=== PATIENT | male | born 1985 | race Caucasian/White ===

== ENCOUNTER → 2016-09-16 | Outpatient (CLI) | payer BC ==
[~2016-09-16] MED LIST: AMOX875T PO; LORA24TA7 PO
--- NOTE | 2016-09-16 13:32 | DIAGNOSTIC IMAGING REPORT ---
TWO VIEW CHEST CLINICAL HISTORY: Cough. Upper respiratory tract infection. FINDINGS: PA and lateral chest radiographs are compared to study dated 08/15/2014. The examination is degraded by large body habitus. The cardiomediastinal silhouette is unremarkable. The lungs and pleural spaces are clear. There is no pneumothorax. The bony thorax appears intact. IMPRESSION: No active disease in the chest. Electronically signed by: Hernan Powell M.D. 09/16/2016 1:30 PM Dictated Date/Time: 09/16/2016 1:29 PM
== END | disposition home or self-care (01) ==
LOC: C.RADPV 13:16
PROVIDERS: ATTEND Family Medicine
DX: J06.9 Acute upper respiratory infection, unspecified (principal); R05 Cough

== ENCOUNTER → 2017-05-21 | Outpatient (CLI) | payer BC ==
[2017-05-21 12:29] LABS: BASO % 0.6 %; BASO ABS # 0.04 K/uL (0-0.2); EOS % 0.8 %; EOS ABS # 0.06 K/uL (0-0.5); HEMATOCRIT 46.2 % (42-52); HEMOGLOBIN 16.1 g/dL (14.0-18.0); IG# 0.01 K/uL (0.00-0.02); LYMPH % 21.7 %; LYMPH ABS # 1.57 K/uL (1.2-3.4); MEAN CELL VOLUME 85.2 fL (80-100); MEAN CORPUSCULAR HEMOGLOBIN 29.7 pg (25-34); MEAN CORPUSCULAR HGB CONC 34.8 g/dl (32-36); MEAN PLATELET VOLUME 10.1 fL (7.4-10.4); MONO % 10.1 %; MONO ABS # 0.73 K/uL (0.11-0.59); NEUT % 66.7 %; NEUT ABS # 4.83 K/uL (1.4-6.5); PLATELET COUNT 356 K/uL (130-400); RED CELL DISTRIBUTION WIDTH CV 14.1 % (11.5-14.5); RED CELL DISTRIBUTION WIDTH SD 43.4 fL (36.4-46.3); WHITE BLOOD COUNT 7.24 K/uL (4.8-10.8)
[2017-05-21 12:48] LABS: ALBUMIN 4.1 gm/dl (3.4-5.0); ALT/SGPT 45 U/L (12-78); BLOOD UREA NITROGEN 11 mg/dl (7-18); CALCIUM 9.5 mg/dl (8.5-10.1); CARBON DIOXIDE 27 mmol/L (21-32); CHOLESTEROL 156 mg/dl (0-200); CREATININE 0.95 mg/dl (0.60-1.40); GLUCOSE 105 mg/dl (70-99); POTASSIUM 4.2 mmol/L (3.5-5.1); SODIUM 137 mmol/L (136-145)
[2017-05-21 12:58] LABS: ALKALINE PHOSPHATASE 92 U/L (45-117); AST/SGOT 19 U/L (15-37); LDL CHOLESTEROL CALCULATED 90 mg/dl
[2017-05-21 13:16] LABS: HEMOGLOBIN A1C 5.8 % (4.5-5.6)
== END | disposition home or self-care (01) ==
LOC: C.LABPVFM 10:09
PROVIDERS: ATTEND Family Medicine
DX: Z13.220 Encounter for screening for lipoid disorders (principal)

== ENCOUNTER 2024-07-17 09:43 | Observation (INO) ==
--- NOTE | 2024-07-17 10:01 | Emergency Department Note ---
History of Present Illness General Chief complaint: Flu Like Symptoms Stated complaint: RASH, FEVER, NAUSEA, HEADACHE, NERVE PAIN Time Seen by Provider: 07/17/24 09:56 History of Present Illness Maximum Pain Intensity: 5 This is a 39-year-old male that presents to the emergency department via private vehicle with complaints of "low back rash, nausea, pain". The patient notes that around 3 PM and this past Wednesday he developed a rash and pain to his low back. He notes history of similar with unclear etiology. He has been hospitalized for similar. He notes that this past Wednesday he presented to an urgent care in the [place] area and was referred to [facility] emergency department. He notes that he had a full workup there and was informed upon elevated CRP, ESR and procalcitonin. He will start on oral antibiotics and antivirals and was discharged home. He notes progressive worsening of the size of the rash/redness to the low back. No known trauma or injury. He notes history of diabetes. Home Medications Medication Instructions Recorded Confirmed Type cetirizine 10 mg tablet (Zyrtec) 10 mg PO DAILY 07/17/24 07/17/24 History doxycycline hyclate 100 mg capsule 100 mg PO BID 07/17/24 07/17/24 History duloxetine 20 mg capsule,delayed 20 mg PO DAILY 07/17/24 07/17/24 History release famotidine 40 mg tablet 40 mg PO BID PRN Heartburn 07/17/24 07/17/24 History losartan 25 mg tablet 25 mg PO DAILY 07/17/24 07/17/24 History metformin 500 mg tablet 500 mg PO QPM 07/17/24 07/17/24 History oxycodone-acetaminophen 5 mg-325 1 tab PO Q6H PRN Pain 07/17/24 07/17/24 History mg tablet semaglutide 1 mg/dose (4 mg/3 mL) 1 mg subcut WK 07/17/24 07/17/24 History subcutaneous pen injector (Ozempic) Allergies Allergy/AdvReac Type Severity Reaction Status Date / Time erythromycin base Allergy Unknown ANAPHYLAXIS Verified 07/17/24 12:52 Sulfa (Sulfonamide Allergy Unknown HIVES Verified 07/17/24 12:52 Antibiotics) levofloxacin AdvReac Unknown diarrhea Verified 07/17/24 12:52 Past Med/Surg History Problem List (Updated 07/17/24 @ 15:23 by Anderson Gill PA-C) Cellulitis (Acute) Herpes zoster Cough (Acute) Medical History Eczema Depression HTN (hypertension) T2DM (type 2 diabetes mellitus) Surgical History History of dental surgery Anal fissure Family History Mother Myocardial infarction 56 Grandfather (Paternal) Prostate cancer Other Diabetes Social History Smoking Status: Never smoker Hx Alcohol Use: Yes Alcohol type: beer Alcohol Intake Frequency: Monthly or Less Preferred Language: Luxembourgish marital status: Current Living Situation: Spouse Feels Safe at Home: Yes Review of Systems A total of 10 systems reviewed and were otherwise negative Physical Exam Vital Signs Vital Signs - 24 hr 07/17/24 09:50 07/17/24 09:58 07/17/24 10:58 Temperature 36.3 C L 37.2 C Temperature Source Oral Oral Pulse Rate 87 87 Pulse Rate [Apical] Pulse Rhythm Regular Pulse Strength Normal Respiratory Rate 20 20 Respiratory Effort / Characteristics Non-Labored Spontaneous Respiratory Depth Normal Respiratory Pattern Regular Blood Pressure 133/93 Blood Pressure [Left Arm] Blood Pressure Mean 106 Blood Pressure Mean [Left Arm] Blood Pressure Position Sitting Pulse Oximetry 99 97 Oxygen Delivery Method Room Air Room Air Sepsis Recent Fever Within 48 Hours No Sepsis New/Unexplained Change in Mental Status No Sepsis Action Taken by Nursing No Action Required 07/17/24 10:59 07/17/24 11:30 07/17/24 13:13 Temperature Temperature Source Pulse Rate 94 H Pulse Rate [Apical] 99 H 90 Pulse Rhythm Pulse Strength Respiratory Rate 18 15 Respiratory Effort / Characteristics Respiratory Depth Respiratory Pattern Blood Pressure Blood Pressure [Left Arm] 151/100 H 128/87 Blood Pressure Mean Blood Pressure Mean [Left Arm] 117 100 Blood Pressure Position Pulse Oximetry 97 97 Oxygen Delivery Method Room Air Room Air Sepsis Recent Fever Within 48 Hours Sepsis New/Unexplained Change in Mental Status Sepsis Action Taken by Nursing 07/17/24 14:53 Temperature Temperature Source Pulse Rate 101 H Pulse Rate [Apical] Pulse Rhythm Pulse Strength Respiratory Rate Respiratory Effort / Characteristics Respiratory Depth Respiratory Pattern Blood Pressure Blood Pressure [Left Arm] Blood Pressure Mean Blood Pressure Mean [Left Arm] Blood Pressure Position Pulse Oximetry Oxygen Delivery Method Sepsis Recent Fever Within 48 Hours Sepsis New/Unexplained Change in Mental Status Sepsis Action Taken by Nursing VITAL SIGNS - Vital signs and nursing notes were reviewed. Stable and afebrile. GENERAL -39-year-old male appearing his stated age who is in no acute distress. Communicates well with provider and answers questions appropriately. SKIN -dark erythematous rash to the low back area overlying the presacral soft tissues extending to the left superior gluteal area. Tiny vesicular like appearance to the inferior most aspect overlying the left superior gluteal area. Remainder is a dark erythematous hue, maculopapular in nature and slightly raised. Area is with a thickened appearance and when palpated does have an indurated feel. HEAD - NC/AT. EYES - PERRL with EOMI bilaterally. Sclera anicteric. Palpebral conjunctiva pink and moist with no injection noted. EARS - No deformities of external structures noted on gross examination bilaterally. No pain elicited with palpation of the tragus bilaterally. External auditory canals without discharge or otorrhea. Tympanic membranes pearly davis without retraction or bulging. No fluid or purulent material visualized behind the TM. Handle of malleus, umbo, cone of light, pars tensa/flaccid all easily visualized. NOSE - Midline and without cyanosis. No epistaxis or purulent drainage noted. Septum midline without deviation or septal hematoma noted. MOUTH/OROPHARYNX - Without perioral cyanosis. NECK - Neck with FROM. No nuchal rigidity. LUNGS - Chest wall symmetric without accessory muscle use, intercostals retractions, or central cyanosis. Normal vesicular breath sounds CTA B/L. No wheezes, rales, or rhonchi appreciated. CARDIAC - RRR. No murmur, rubs, or gallops appreciated. ABDOMEN - Abdominal contour normal without pulsations or visible masses. BS normoactive all four quadrants. No tenderness, palpable masses, hepatosplenomegaly, or ascites noted. EXTREMITIES - No clubbing or peripheral cyanosis. +5/5 strength noted in UE/LE bilaterally. NEUROLOGIC - Cranial nerves II through XII grossly intact. PSYCH -alert, oriented and pleasant on examination Course Administered Medications Discontinued Medications Piperacillin Sod/Tazobactam Sod (Zosyn) 4.5 gm in 100 mls @ 200 mls/hr IV NOW ONE; Protocol Stop: 07/17/24 12:45 Last Infusion: 07/17/24 13:06 Dose: Infused Documented By: Admin: 07/17/24 12:33 Dose: 200 mls/hr Documented By: GUNNAR Ioversol (Optiray 320 100ml) 94 ml IV ONCE ONE Stop: 07/17/24 12:31 Last Admin: 07/17/24 12:30 Dose: 94 ml Documented By: CHAPITO Lorazepam (Lorazepam 1 Mg Tab) 0.5 mg SL NOW STA Stop: 07/17/24 13:41 Last Admin: 07/17/24 14:20 Dose: 0.5 mg Documented By: GUNNAR Medical Decision Making Laboratory Data 07/17/24 10:49 07/17/24 10:49 Lab Results 07/17/24 07/17/24 Range/Units 10:49 11:30 WBC 8.13 (4.8-10.8) K/ul RBC 4.93 (4.70-6.10) M/uL Hgb 14.1 (14.0-18.0) g/dl Hct 40.8 L (42.0-52.0) % MCV 82.8 (80.0-100.0) fL MCH 28.6 (25.0-34.0) pg MCHC 34.6 (32.0-36.0) g/dL RDW Std Deviation 40.4 (36.4-46.3) fL RDW Coeff of [place] 13.4 (11.5-14.5) % Plt Count 295 (130-400) K/uL MPV 10.3 (9.4-12.4) fL Immature Gran % (Auto) 0.4 % Neut % (Auto) 72.8 % Lymph % (Auto) 14.3 % [place] % (Auto) 11.4 % Eos % (Auto) 0.5 % Baso % (Auto) 0.6 % Neut # (Auto) 5.92 (1.40-6.50) K/uL Lymph # (Auto) 1.16 L (1.20-3.40) K/uL [place] # (Auto) 0.93 H (0.11-0.59) K/uL Eos # (Auto) 0.04 (0.00-0.50) K/uL Baso # (Auto) 0.05 (0.00-0.20) K/uL Immature Gran # (Auto) 0.03 (0.01-0.20) K/uL ESR 52 H (0-15) mm/hr PT 9.9 (9.0-12.0) Seconds INR 0.9 (0.9-1.1) APTT 31 (21-31) Seconds PTT Ratio 1.2 Sodium 137 (136-145) mmol/L Potassium 4.1 (3.5-5.1) mmol/L Chloride 104 (98-107) mmol/L Carbon Dioxide 26 (21-32) mmol/L Anion Gap 7 (3-11) BUN 12 (6-23) mg/dl Creatinine 0.86 (0.6-1.4) mg/dl Est Cr Clr Drug Dosing 154.3 ml/min eGFR 111.56 BUN/Creatinine Ratio 14.0 (10-20) Glucose 143 H (70-99(Fasting)) mg/dl Lactate 1.7 (0.4-2.0) mmol/L Calcium 8.8 (8.6-10.3) mg/dl Magnesium 1.8 (1.7-2.4) mg/dl Total Bilirubin 0.5 (0.2-1.0) mg/dl AST 16 (13-39) U/L ALT 20 (7-52) U/L Alkaline Phosphatase 57 (34-104) U/L C-Reactive Protein 12.41 H (0-0.5) mg/dl Total Protein 7.3 (6.0-8.3) gm/dl Albumin 4.1 (3.4-5.0) gm/dl Globulin 3.2 (2.5-4.0) gm/dl Albumin/Globulin Ratio 1.3 (0.9-2) Lipase 30 (11-82) U/L Procalcitonin 0.17 (0-0.5) ng/ml Urine Color Yellow Urine Appearance Clear (Clear) Urine pH 5.5 (4.5-7.5) Ur Specific [place] 1.012 (1.000-1.030) Urine Protein Negative (Negative) Urine Glucose (UA) Negative (Negative) Urine Ketones Negative (Negative) Urine Blood Negative (Negative) Urine Nitrite Negative (Negative) Urine Bilirubin Negative (Negative) Urine Urobilinogen Negative (Negative) Ur Leukocyte Esterase Negative (Negative) Lyme Disease Screen Negative (Negative) Imaging Data Radiologist's Impression: Abdomen/Pelvis CT 07/17/24 10:[address] WITH IV CONTRAST CT DOSE: 1619.97 mGy.cm HISTORY: Acute low back pain low back erythema, edema, infection TECHNIQUE: Multiaxial CT images of the abdomen and pelvis were performed following the IV administration of 24 cc of Optiray, A dose lowering technique was utilized adhering to the principles of ALARA. COMPARISON STUDY: None. FINDINGS: The lung bases are clear. Mild coronary artery calcifications. Trace pleural effusions. The spleen, gallbladder, pancreas, and adrenal glands are within normal limits. Probable hepatic steatosis. Patency of the hepatic and portal veins. Unremarkable kidneys. No hydronephrosis. Normal appendix. No bowel wall thickening or obstruction. The pelvic organs are unremarkable. Borderline enlarged inguinal chain lymph nodes are likely reactive. Mild subcutaneous edema within the inguinal tissues and right flank laterally with a 9 x 6 mm subcutaneous right flank nodule suggestive of a probable lymph node. No abscess. Acute osseous abnormality. IMPRESSION: 1. No acute intra-abdominal or intrapelvic abnormality. 2. Findings suggestive of cellulitis involving the right lateral flank. No abscess. ACT 112: Negative or not required by law. The above report was generated using voice recognition software. It may contain grammatical, syntax or spelling errors. Electronically signed by: Jose De Jesus Reyes M.D. 07/17/2024 1:04 PM MDM Narrative Patient was seen and evaluated as above in room B11b. Review was performed of triage nursing notes and vital signs. Patient does have his laboratory studies on his phone from recent [facility] visit. These were reviewed. After obtaining a thorough history and physical examination the above work up was performed. Patient presents for evaluation of progressively worsening rash to the low back area. He notes recent elevation of WBC, ESR, CRP and procalcitonin on recent ED visit to of [facility] for same symptoms this past Wednesday. He notes worsening symptoms. On my assessment there is erythema and edema to the low back area and presacral soft tissues and left superior gluteal area indicative of cellulitis. Underlying zoster also possible. Options of care were discussed with the patient. IV access with established. Labs were drawn. IV Zosyn ordered for empiric coverage as well as daptomycin. I did call pharmacy to verify daptomycin dosing noting order set. Labs reveal no leukocytosis or concerning anemia. ESR and CRP are elevated. Coags normal. No evidence of kidney or liver failure. Hyperglycemia 143. Procalcitonin detectable but within normal range. Lipase normal. Urinalysis does not suggest infection. Lyme testing negative. A CT scan was performed of the abdomen/pelvis and this was positive for cellulitis involving the right lateral flank. No abscess. No acute intra-abdominal processes. No evidence of necrotizing process on exam or by CT. At this time I do believe that further evaluation and management in the inpatient setting is warranted noting progressive symptoms despite oral antibiotics and antivirals. I did obtain a herpes culture and type swab of the low back area. Case discussed with the hospitalist service. Please refer to further documentation regarding his stay. Patient did ask for an anxiolytic and oral Ativan was ordered. GCS: 15 In the evaluation and treatment of this patient the following differential diagnoses were entertained: Zoster, Cellulitis, necrotizing fasciitis, SJS, TENS, among others Impression & Plan Cellulitis Discharge Plan Visit Data Chief Complaint: Flu Like Symptoms Stated Complaint: RASH, FEVER, NAUSEA, HEADACHE, NERVE PAIN ED Provider: Shahzad Romero ED Midlevel Provider: Anderson Gill Discharge Problem: Cellulitis Patient Disposition: Admitted As Inpatient Condition: Good Forms Stand Alone Forms: My [facility] [place] [employer] Prescriptions Prescriptions: No Action metformin 500 mg tablet 500 mg PO QPM doxycycline hyclate 100 mg capsule 100 mg PO BID Rx Instructions: Start Date 07/16/24 x7 day supply famotidine 40 mg tablet 40 mg PO BID PRN (Reason: Heartburn) oxycodone-acetaminophen 5-325 mg tablet 1 tab PO Q6H PRN (Reason: Pain) losartan 25 mg tablet 25 mg PO DAILY duloxetine 20 mg capsule,delayed release(DR/EC) 20 mg PO DAILY Ozempic 1 mg/dose (4 mg/3 mL) pen injector 1 mg subcut WK Rx Instructions: Tuesdays cetirizine [Zyrtec] 10 mg Tablet 10 mg PO DAILY Referrals Referrals: PCP,NO [Physician] -
[2024-07-17 11:56] LABS: Appearance Urine Clear (Clear); Bilirubin Urine Negative (Negative); Blood Urine Negative (Negative); Color Urine Yellow; Glucose Urine UA Negative (Negative); Ketones Urine Negative (Negative); Leukocyte Esterase Urine Negative (Negative); Nitrite Urine Negative (Negative); Protein Urine Negative (Negative); Specific Gravity Urine 1.012 (1.000-1.030); Urobilinogen Urine Negative (Negative); pH Urine 5.5 (4.5-7.5)
[2024-07-17 12:07] LABS: Basophils # (auto) 0.05 K/uL (0.00-0.20); Basophils % (auto) 0.6 %; Eosinophils # (auto) 0.04 K/uL (0.00-0.50); Eosinophils % (auto) 0.5 %; Hematocrit (blood only) 40.8 % (42.0-52.0); Hemoglobin 14.1 g/dl (14.0-18.0); Immature Granulocytes # (auto) 0.03 K/uL (0.01-0.20); Immature Granulocytes % (auto) 0.4 %; Lymphocytes # (auto) 1.16 K/uL (1.20-3.40); Lymphocytes % (auto) 14.3 %; Mean Corpuscular Hemoglobin 28.6 pg (25.0-34.0); Mean Corpuscular Hgb Conc 34.6 g/dL (32.0-36.0); Mean Corpuscular Volume 82.8 fL (80.0-100.0); Mean Platelet Volume 10.3 fL (9.4-12.4); Monocytes # (auto) 0.93 K/uL (0.11-0.59); Monocytes % (auto) 11.4 %; Neutrophils # (auto) 5.92 K/uL (1.40-6.50); Neutrophils % (auto) 72.8 %; Platelet Count 295 K/uL (130-400); RDW Coefficient of Variation 13.4 % (11.5-14.5); RDW Standard Deviation 40.4 fL (36.4-46.3); Red Blood Count 4.93 M/uL (4.70-6.10); White Blood Count 8.13 K/ul (4.8-10.8)
[2024-07-17 12:19] LABS: Albumin Globulin Ratio 1.3 (0.9-2); Albumin Level 4.1 gm/dl (3.4-5.0); Bilirubin,Total 0.5 mg/dl (0.2-1.0); C Reactive Protein 12.41 mg/dl (0-0.5); Calcium 8.8 mg/dl (8.6-10.3); Creatinine Clr Calc Pharmacy 154.3 ml/min; Globulin 3.2 gm/dl (2.5-4.0); Magnesium 1.8 mg/dl (1.7-2.4); Potassium 4.1 mmol/L (3.5-5.1); Total Protein 7.3 gm/dl (6.0-8.3)
[2024-07-17 12:29] LABS: INR 0.9 (0.9-1.1); Partial Thromboplastin Ratio 1.2; Partial Thromboplastin Time 31 Seconds (21-31); Prothrombin Time 9.9 Seconds (9.0-12.0)
[2024-07-17] MEDS: OPTIRAY 320 100ml IV ONE (12:30)
[2024-07-17] MEDS: PIPERACILLIN/TAZOBACTAM 4.5 GM/100 ML BAG IV ONE (12:33)
--- NOTE | 2024-07-17 13:07 | CT Scan Report ---
ABDOMEN AND PELVIS CT WITH IV CONTRAST CT DOSE: 1619.97 mGy.cm HISTORY: Acute low back pain low back erythema, edema, infection TECHNIQUE: Multiaxial CT images of the abdomen and pelvis were performed following the IV administrat ion of 24 cc of Optiray, A dose lowering technique was utilized adhering to the principles of ALARA. COMPARISON STUDY: None. FINDINGS: The lung bases are clear. Mild coronary artery calcifications. Trace pleural effusions. The spleen, gallbladder, pancreas, and adrenal glands are within normal limits. Probable hepatic steatos is. Patency of the hepatic and portal veins. Unremarkable kidneys. No hydronephrosis. Normal appendix . No bowel wall thickening or obstruction. The pelvic organs are unremarkable. Borderline enlarged in guinal chain lymph nodes are likely reactive. Mild subcutaneous edema within the inguinal tissues and right flank laterally with a 9 x 6 mm subcutaneous right flank nodule suggestive of a probable lymph node. No abscess. Acute osseous abnormality. IMPRESSION: 1. No acute intra-abdominal or intrapelvic abnormality. 2. Findings suggestive of cellulitis involving the right lateral flank. No abscess. ACT 112: Negative or not required by law. The above report was generated using voice recognition software. It may contain grammatical, syntax o r spelling errors. Electronically signed by: Jose De Jesus Reyes M.D. 07/17/2024 1:04 PM
[2024-07-17] MEDS ORDERED: DAPTOMYCIN IV ONE (13:26)
--- NOTE | 2024-07-17 13:43 | History & Physical Report ---
Date of Service July 17, 2024 Assessment & Plan (1) Herpes zoster: (2) T2DM (type 2 diabetes mellitus): (3) HTN (hypertension): Plan This is a 39 yr old M who has a significant PMH of T2DM, HTN, Depression and eczema who presents to ED 2/2 Rash and ill feeling x 3 days. #Suspected Herpes Zoster Rash #Possible superimposed bacterial cellulitis admit to medical under obs Pt previously on oral valtrex, and recently started course as outpt, had 2.5 days worth Start IV acyclovir q8hr continue IV dapto for possible bacterial component check HSV 1 and 2, Varicella zoster antibodies consider autoimmune work up as outpt if negative consult infectious disease given recurrence, pt reports started 1 month after taking covid vaccine He is not sepsis obtain MRSA screen gentle IVF x 24hr Droplet precautions #T2DM: unknown a1c, hold metformin/ozempic, place on novolog SS while inpt, check A1C #HTN: bp controlled, continue losartan #Depression: mood stable, continue cymbalta DVT px: SQ Lovenox FULL CODE PCP: Lou Dispo: admit to medical under obs for ID evaluation and IV acyclovir Pt was seen and examined in collaboration with Dr. chaidez, please see addendum I spent a total of 60 minutes coordinating, documenting and providing care for this patient excluding time spent in the performance of separately billed services or time spent by another provider/QHP. History of Present Illness Chief Complaint: Rash to lower back and ill feeling x 3 days. Primary Care Provider: Tad Blake MD This is a 39 yr old M who has a significant PMH of T2DM, HTN, Depression and eczema who ppresents to ED 2/2 Rash and ill feeling x 3 days. His fiance is at bedside who helps elicit history. He reports similar rash dating back to 2020. He has had 10 prior episodes, including this one. In past he was seen Derm for it. It was thought it could be shingles. They started valacyclovir and typically his sx would go away. Just recently his sx started 3 days ago. Rash starts on his L lower back/sacral area. He began feeling ill, fever 103, achy, sweats and chills. He was seen in UC and started on antibiotics and antivirals. Typically fiance states after starting the valtrex within 2 days in clears up; however this has progressed and tripled in size. Current Valtrex dose is 1g tid. He first dose was 3pm Wednesday. Rash is not painful during the day, but at night it feels like a "sunburn." He feels achy, fevers, chills, sweats. He took his temp and it was 103 on Wednesday. Hes never had this prior to receiving the covid vaccine. He reports first episode 1 month after. No one else he has been around that has shingles. He denies further sick contacts. Fichapo states that each time it seems to get worse. They are getting in month and would like more answers to prevent him from going through this. In ED pt was hemodynamically stable. His CBC and CMP was unremarkable. His esr was 52 and CRP was 12.41. Allergies Allergy/AdvReac Type Severity Reaction Status Date / Time erythromycin base Allergy Unknown ANAPHYLAXIS Verified 07/17/24 12:52 Sulfa (Sulfonamide Allergy Unknown HIVES Verified 07/17/24 12:52 Antibiotics) levofloxacin AdvReac Unknown diarrhea Verified 07/17/24 12:52 Home Medications Medication Instructions Recorded Confirmed Type cetirizine 10 mg tablet (Zyrtec) 10 mg PO DAILY 07/17/24 07/17/24 History doxycycline hyclate 100 mg capsule 100 mg PO BID 07/17/24 07/17/24 History duloxetine 20 mg capsule,delayed 20 mg PO DAILY 07/17/24 07/17/24 History release famotidine 40 mg tablet 40 mg PO BID PRN Heartburn 07/17/24 07/17/24 History losartan 25 mg tablet 25 mg PO DAILY 07/17/24 07/17/24 History metformin 500 mg tablet 500 mg PO QPM 07/17/24 07/17/24 History oxycodone-acetaminophen 5 mg-325 1 tab PO Q6H PRN Pain 07/17/24 07/17/24 History mg tablet semaglutide 1 mg/dose (4 mg/3 mL) 1 mg subcut WK 07/17/24 07/17/24 History subcutaneous pen injector (Ozempic) Past Med/Surg History Problem List (Updated 07/17/24 @ 14:39 by Honey Engel PA-C) Herpes zoster Cough (Acute) Medical History (Updated 07/17/24 @ 14:39 by Honey Engel PA-C) Eczema Depression HTN (hypertension) T2DM (type 2 diabetes mellitus) Surgical History (Updated 07/17/24 @ 13:47 by Honey Engel PA-C) History of dental surgery Anal fissure Family History (Updated 07/17/24 @ 13:46 by Honey Engel PA-C) Mother Myocardial infarction 56 Grandfather (Paternal) Prostate cancer Other Diabetes Social History (Updated 07/17/24 @ 13:45 by Honey Engel PA-C) Smoking Status: Never smoker Hx Alcohol Use: Yes Alcohol type: beer Alcohol Intake Frequency: Monthly or Less Preferred Language: Azeri marital status: Current Living Situation: Spouse Feels Safe at Home: Yes Review of Systems Review of Systems: All systems reviewed & are unremarkable except as noted in HPI & below Physical Exam Physical Exam: please refer to Dr. Chaidez addendum for physical exam findings. Results & Data Results & Data Vital Signs (Past 12 Hours) Vital Signs Temp Pulse Pulse Resp BP BP Pulse Ox 07/17/24 13:13 90 15 128/87 97 07/17/24 11:30 99 H 18 151/100 H 97 07/17/24 10:59 94 H 07/17/24 10:58 87 20 97 07/17/24 09:58 37.2 C 07/17/24 09:50 36.3 C L 87 20 133/93 99 O2 Del Method 07/17/24 13:13 Room Air 07/17/24 11:30 Room Air 07/17/24 10:59 07/17/24 10:58 Room Air 07/17/24 09:58 07/17/24 09:50 Room Air Laboratory Results I have independently reviewed and interpreted patient's admitting labs including CBC, CMP, PTT, PT/INR, lactate, procal, lipase, urine Diagnostic Findings Abdomen/Pelvis CT 07/17/24 10:[address] WITH IV CONTRAST CT DOSE: 1619.97 mGy.cm HISTORY: Acute low back pain low back erythema, edema, infection TECHNIQUE: Multiaxial CT images of the abdomen and pelvis were performed following the IV administration of 24 cc of Optiray, A dose lowering technique was utilized adhering to the principles of ALARA. COMPARISON STUDY: None. FINDINGS: The lung bases are clear. Mild coronary artery calcifications. Trace pleural effusions. The spleen, gallbladder, pancreas, and adrenal glands are within normal limits. Probable hepatic steatosis. Patency of the hepatic and portal veins. Unremarkable kidneys. No hydronephrosis. Normal appendix. No bowel wall thickening or obstruction. The pelvic organs are unremarkable. Borderline enlarged inguinal chain lymph nodes are likely reactive. Mild subcutaneous edema within the inguinal tissues and right flank laterally with a 9 x 6 mm subcutaneous right flank nodule suggestive of a probable lymph node. No abscess. Acute osseous abnormality. IMPRESSION: 1. No acute intra-abdominal or intrapelvic abnormality. 2. Findings suggestive of cellulitis involving the right lateral flank. No abscess. ACT 112: Negative or not required by law. The above report was generated using voice recognition software. It may contain grammatical, syntax or spelling errors. Electronically signed by: Jose De Jesus Reyes M.D. 07/17/2024 1:04 PM Medications Administered Medication List Discontinued Medications Piperacillin Sod/Tazobactam Sod (Zosyn) 4.5 gm in 100 mls @ 200 mls/hr IV NOW ONE; Protocol Stop: 07/17/24 12:45 Last Infusion: 07/17/24 13:06 Dose: Infused Documented By: Admin: 07/17/24 12:33 Dose: 200 mls/hr Documented By: GUNNAR Ioversol (Optiray 320 100ml) 94 ml IV ONCE ONE Stop: 07/17/24 12:31 Last Admin: 07/17/24 12:30 Dose: 94 ml Documented By: CHAPITO COVID-19 Results Results COVID-19 Adm Lab Results: RBC 4.93 M/uL (4.70-6.10) 07/17/24 WBC 8.13 K/ul (4.8-10.8) 07/17/24 Hgb 14.1 g/dl (14.0-18.0) 07/17/24 Hct 40.8 % (42.0-52.0) L 07/17/24 Plt Count 295 K/uL (130-400) 07/17/24 Lymphocytes (%) (Auto) 14.3 % 07/17/24 Monocytes # (Auto) 0.93 K/uL (0.11-0.59) H 07/17/24 Eosinophils # (Auto) 0.04 K/uL (0.00-0.50) 07/17/24 Immature Granulocyte % (Auto) 0.4 % 07/17/24 Neutrophils # (Auto) 5.92 K/uL (1.40-6.50) 07/17/24 Lymphocytes # (Auto) 1.16 K/uL (1.20-3.40) L 07/17/24 Monocytes # (Auto) 0.93 K/uL (0.11-0.59) H 07/17/24 Eosinophils # (Auto) 0.04 K/uL (0.00-0.50) 07/17/24 Basophils # (Auto) 0.05 K/uL (0.00-0.20) 07/17/24 Immature Granulocyte # (Auto) 0.03 K/uL (0.01-0.20) 5 Na 137 mmol/L (136-145) 07/17/24 K 4.1 mmol/L (3.5-5.1) 07/17/24 Cl 104 mmol/L (98-107) 07/17/24 CO2 26 mmol/L (21-32) 07/17/24 Anion Gap 7 (3-11) 07/17/24 BUN 12 mg/dl (6-23) 07/17/24 Creatinine 0.86 mg/dl (0.6-1.4) 07/17/24 BUN/Creatinine Ratio 14.0 (10-20) 07/17/24 Glucose Level 143 mg/dl (70-99(Fasting)) H 07/17/24 Ca 8.8 mg/dl (8.6-10.3) 07/17/24 Total Bilirubin 0.5 mg/dl (0.2-1.0) 07/17/24 AST/SGOT 16 U/L (13-39) 07/17/24 ALT/SGPT 20 U/L (7-52) 07/17/24 Alkaline Phosphatase 57 U/L (34-104) 07/17/24 Total Protein 7.3 gm/dl (6.0-8.3) 07/17/24 Albumin 4.1 gm/dl (3.4-5.0) 07/17/24 Globulin 3.2 gm/dl (2.5-4.0) 07/17/24 Albumin/Globulin Ratio 1.3 (0.9-2) 07/17/24 CRP 12.41 mg/dl (0-0.5) H 07/17/24 Procalcitonin 0.17 ng/ml (0-0.5) 07/17/24 PTT 31 Seconds (21-31) 07/17/24 INR 0.9 (0.9-1.1) 07/17/24 Code Status & VTE Plan Code Status FULL CODE VTE Prophylaxis Plan VTE Prophylaxis will be ordered: Yes Supervising Physician Co-Signing Physician Notes I have seen and discussed the case with the collaborating advanced practitioner. I agree with the above H&P. I have reviewed and confirmed the patients medical history, the findings on physical examination, and the patients diagnosis and treatment plan with Toro DEL ROSARIO and agree with the information documented. In short, Mr. Belle is a 39 yo gentleman with a recurrent rash on lower back diagnosed as shingles. This has occurred since 2020 for about 10 episodes--this being the worst and less responsive to valacyclovir Patient notes that he feels feverish with documented fever up to 103 F Reports feeling at baseline state of health prior to Wednesday when rash appeared denies having any antibody testing or other evaluation GENERAL APPEARANCE: AxOx4, generally well-appearing male no acute distress. HEENT: NC, AT. MMM. EOMI, clear conjunctiva, oropharynx clear. NECK: Supple without lymphadenopathy. No stiffness or restricted ROM. HEART: Normal rate and regular rhythm, normal S1/S1, no m/r/g LUNGS: CTAB, moving air well. No crackles or wheezes are heard. ABDOMEN: Soft, nontender, nondistended with good bowel sounds heard. BACK: No CVAT, no obvious deformity. EXTREMITIES: Without cyanosis, clubbing or edema. NEUROLOGICAL: Grossly nonfocal. Alert and oriented, moving all 4 extremities. CN not formally tested but appear grossly intact. Observed to ambulate with normal gait. Skin: violaceous rash with skin thickening on low back extending down over left buttock, tenderness to touch, firm indurated areas #Rash suspicious for shingles historical improvement in 24-48 hours with valacyclovir, now progressing, concern for resistance? Will treat for superimposed cellulitis, daptomycin to be continued for MRSA/MSSA coverage IV acyclovir however concern for resistance will ask if foscarnet on formulary ID consult placed droplet precautions Rest of plan as above I spent a total of 35 minutes coordinating, documenting, and providing care for this patient excluding time spent in the performance of separately billed services. All of the aforementioned completed outside of collaborating with the assigned advanced practitioner for a full treatment plan. I have reviewed the advanced practitioner's documentation, and I agree with, and take responsibility for the plan of care
[2024-07-17] MEDS: LORazepam 1 MG TAB SL STA (14:20)
[2024-07-17] MEDS: DAPTOmycin 600 MG in SYRINGE 0 ML IV ONE (15:36)
[2024-07-17] MEDS ORDERED: DEXTROSE 50% 50 ML SYRINGE IV PRN (15:42)
[2024-07-17] MEDS ORDERED: ONDANSETRON INJ 2 MG/ML 2 ML VIAL IV PRN (15:42)
[2024-07-17] MEDS ORDERED: GLUCAGON FOR INJ 1 MG VIAL SQ PRN (15:42)
[2024-07-17] MEDS ORDERED: GLUCOSE 10 TAB/TUBE PO PRN (15:42)
[2024-07-17] MEDS ORDERED: FAMOTIDINE 20 MG TAB PO PRN (15:42)
[2024-07-17] MEDS ORDERED: POLYETHYLENE (MIRALAX) 17 GM PACK PO PRN (15:42)
[2024-07-17] MEDS ORDERED: GLUCOSE 40% GEL 15 GM TUBE PO PRN (15:42)
[2024-07-17] MEDS ORDERED: CARBOHYDRATES FOR HYPOGLYCEMIA PO PRN (15:42)
[2024-07-17] MEDS: ACETAMINOPHEN 325 MG TAB PO PRN (16:03)
[2024-07-17] MEDS: SODIUM CHLORIDE 0.9% 1,000 ML IV SCH (16:05)
[2024-07-17] MEDS: INSULIN ASPART PER UNIT CHARGE SC SCH (16:14)
[2024-07-17] MEDS: ACYCLOVIR SOD 800 MG in DEXTROSE 5% 250 ML IV SCH (16:27)
[2024-07-17 19:14] VITALS: O2SAT 98
[2024-07-17] MEDS: LOSARTAN POTASSIUM 25 MG TAB PO SCH (20:21)
[2024-07-17] MEDS: ENOXAPARIN INJ 40 MG/0.4 ML SYR SQ SCH (20:21)
[2024-07-17] MEDS: FAMOTIDINE 20 MG TAB PO SCH (20:36)
[2024-07-17] MEDS: CETIRIZINE HCL 10 MG TABLET PO SCH (20:36)
[2024-07-17] MEDS ORDERED: MELATONIN 3 MG TAB PO PRN (21:00)
[2024-07-18 08:32] LABS: Basophils # (auto) 0.06 K/uL (0.00-0.20); Eosinophils # (auto) 0.12 K/uL (0.00-0.50); Hematocrit (blood only) 39.8 % (42.0-52.0); Hemoglobin 13.4 g/dl (14.0-18.0); Immature Granulocytes # (auto) 0.04 K/uL (0.01-0.20); Immature Granulocytes % (auto) 0.7 %; Lymphocytes # (auto) 1.34 K/uL (1.20-3.40); Lymphocytes % (auto) 22.3 %; Mean Corpuscular Hemoglobin 27.7 pg (25.0-34.0); Mean Corpuscular Hgb Conc 33.7 g/dL (32.0-36.0); Mean Corpuscular Volume 82.2 fL (80.0-100.0); Mean Platelet Volume 9.8 fL (9.4-12.4); Monocytes # (auto) 0.86 K/uL (0.11-0.59); Monocytes % (auto) 14.3 %; Neutrophils # (auto) 3.59 K/uL (1.40-6.50); Neutrophils % (auto) 59.7 %; Platelet Count 306 K/uL (130-400); RDW Coefficient of Variation 13.3 % (11.5-14.5); Red Blood Count 4.84 M/uL (4.70-6.10); White Blood Count 6.01 K/ul (4.8-10.8)
[2024-07-18 08:39] LABS: Estimated Average Glucose 134 mg/dl; Hemoglobin A1C 6.3 % (4.5-5.6)
[2024-07-18] MEDS: ADVANCED PROBIOTIC 625 MG CAPSULE PO SCH (08:45)
[2024-07-18] MEDS: DULoxetine HCL 20 MG CAP PO SCH (08:45)
[2024-07-18 08:46] LABS: Albumin Globulin Ratio 1.3 (0.9-2); BUN Creatinine Ratio 11.4 (10-20); Bilirubin,Total 0.6 mg/dl (0.2-1.0); Creatinine Clr Calc Pharmacy 135.8 ml/min; Globulin 3.2 gm/dl (2.5-4.0); Potassium 4.4 mmol/L (3.5-5.1); Total Protein 7.2 gm/dl (6.0-8.3)
[2024-07-18] MEDS ORDERED: CETIRIZINE HCL 10 MG TABLET PO SCH (09:00)
[2024-07-18] MEDS ORDERED: LOSARTAN POTASSIUM 25 MG TAB PO SCH (09:00)
[2024-07-18 14:22] VITALS: BP 124/79; PULSE 87; RESP 14; TEMP 97.3
[2024-07-18] MEDS: DAPTOmycin 600 MG in SYRINGE 0 ML IV SCH (14:57)
--- NOTE | 2024-07-18 20:03 | Discharge Summary ---
Discharge Summary Date of Service July 18, 2024 Principal Dx & Hospital Course #1 = Principal Diagnosis (1) Herpes zoster: (2) T2DM (type 2 diabetes mellitus): (3) HTN (hypertension): Plan #Uncomplicated Cellulitis #Inflammatory Sebhorreic Keratosis -patient has elevated ESR and CRP consistent with cellulitis -no lab workup prior to admission over past few years has confirmed varicella zoster -rash not in classic dermatome distribution -differential includes recurrent cellulitis, hidaradenitis suppurtiva, HSV infection, lymphocytic vasculitis, urticarial vasculitis Plan: -discharge home with augmentin/doxy -f/u with dermatology tomorrow morning -rheumatology referral recommended -vasculitis and autoimmune panel ordered Notes For Next Care Provider This is a 39 yr old M who has a significant PMH of T2DM, HTN, Depression and eczema who ppresents to ED 2/2 Rash and ill feeling x 3 days. His fiance is at bedside who helps elicit history. He reports similar rash dating back to 2020. He has had 10 prior episodes, including this one. On medicine, abx given with significant improvement in rash. Autoimmune panel and ANCA panel ordered. on 07/18/2024 patient medically stable for discharge. Follow up with dermatology, rheumatology. F/u autoimmune and ANCA panel. Medication Changes From Visit -augmentin/doxy Admission HPI Per Admitting Provider This is a 39 yr old M who has a significant PMH of T2DM, HTN, Depression and eczema who ppresents to ED 2/2 Rash and ill feeling x 3 days. His fiance is at bedside who helps elicit history. He reports similar rash dating back to 2020. He has had 10 prior episodes, including this one. In past he was seen Derm for it. It was thought it could be shingles. They started valacyclovir and typically his sx would go away. Just recently his sx started 3 days ago. Rash starts on his L lower back/sacral area. He began feeling ill, fever 103, achy, sweats and chills. He was seen in UC and started on antibiotics and antivirals. Typically fiance states after starting the valtrex within 2 days in clears up; however this has progressed and tripled in size. Current Valtrex dose is 1g tid. He first dose was 3pm Wednesday. Rash is not painful during the day, but at night it feels like a "sunburn." He feels achy, fevers, chills, sweats. He took his temp and it was 103 on Wednesday. Hes never had this prior to receiving the covid vaccine. He reports first episode 1 month after. No one else he has been around that has shingles. He denies further sick contacts. Fiance states that each time it seems to get worse. They are getting in month and would like more answers to prevent him from going through this. In ED pt was hemodynamically stable. His CBC and CMP was unremarkable. His esr was 52 and CRP was 12.41. Discharge Exam Gen: A&O NAD HEENT: NCAT, EOMI, not icteric. External ears normal. No rhinorrhea. Moist mucous membranes. Neck: Supple, full range of motion, no observable masses, No meningeal sign. Lungs: No Respiratory distress. CV: RRR, no edema. Abdomen: Soft, nondistended, No rebound tenderness. MSK: No joint swelling, no redness. Skin: rash in lower back, papular with macular component, erythematous, tender to touch, not wheeping Neuro: Normal Gait, Grossly intact. Psych: Appropriate for situation. Updated Medication List Medication Instructions Recorded Confirmed Type cetirizine 10 mg tablet (Zyrtec) 10 mg PO DAILY 07/17/24 07/17/24 History duloxetine 20 mg capsule,delayed 20 mg PO DAILY 07/17/24 07/17/24 History release famotidine 40 mg tablet 40 mg PO BID Heartburn 07/17/24 07/17/24 History losartan 25 mg tablet 25 mg PO DAILY 07/17/24 07/17/24 History metformin 500 mg tablet 500 mg PO QPM 07/17/24 07/17/24 History oxycodone-acetaminophen 5 mg-325 1 tab PO Q6H PRN Pain 07/17/24 07/17/24 History mg tablet semaglutide 1 mg/dose (4 mg/3 mL) 1 mg subcut WK 07/17/24 07/17/24 History subcutaneous pen injector (Ozempic) amoxicillin 500 mg-potassium 1 tab PO BID #7 tabs 07/18/24 Rx clavulanate 125 mg tablet (Augmentin) doxycycline hyclate 100 mg capsule 100 mg PO BID 7 days #14 caps 07/18/24 Rx Hospital Stay Data Consultations 07/17/24 13:29 ED Decision to Admit Stat 07/17/24 14:24 Consult Infectious Diseases Routine Diagnostic Imagining Performed 07/17/24 10:44 CT abd pelvis IV con only Stat Pending Results Patient Have Any Pending Studies at Discharge: No Discharge Instructions Given to Patient (Per Discharging Provider) 1. Please follow up with dermatology. 2. Finish 7 day course of antibiotics. 3. Please follow up with rheumatology. Total Time Total Time Spent Total Time Spent (In Minutes): I spent a total of 50 minutes in direct patient care, including [id number] time with the patient and/or family, reviewing medical records, ordering and reviewing diagnostic tests, and coordinating care with other healthcare providers. This time includes: history taking, physical examination, medical decision making, counseling, ECG interpretation, imaging interpretation, lab interpretation, orders, and education, excluding time spent in the performance of separately billed services.
[2024-07-20 17:33] LABS: VZ DNA Source Whole Blood; Varicella Zoster Virus DNA PCR Not Detected (Not Detected)
== END 2024-07-18 17:34 | disposition home or self-care (01) ==
LOC: EDINP 09:43 → ED 09:43 → SUATTDRO 13:33 → 3E 19:54